=== PATIENT | male | born 1965 | race Caucasian/White ===

== ENCOUNTER 2024-12-31 12:09 | Inpatient (IN) | payer SELFPAY ==
[~2024-12-31] VITALS: Ht 175.2 cm; Wt 62.3 kg
[~2024-12-31 12:09] MED LIST: ZITHROMAX250 MG PO
[2024-12-31 12:24] VITALS: BP 73/55
[2024-12-31] MEDS ORDERED: SODIUM CHLORIDE 0.9% 1,000 ML IV ONE ×3 (12:35→16:10)
[2024-12-31 12:52] LABS: BASO # 0.1 10*3/uL (0.0-0.1); BASO % 0.6 % (0.0-1.0); EOS # 0.0 10*3/uL (0.0-0.4); EOS % 0.2 % (1.0-4.0); MEAN CELL VOLUME 96.6 fl (80.0-94.0); MEAN CORPUSCULAR HGB 31.1 pg (27.0-31.0); MEAN PLATELET VOLUME 8.7 fl (9.6-12.3); MONO # 0.9 10*3/uL (0.1-1.0); MONO % 6.2 % (3.0-9.0); NEUT # 12.3 10*3/uL (2.3-7.9); NEUT % 83.5 % (47.0-73.0); NUCLEATED RED BLOOD CELL 0.0 % (0.0-0.0); NUCLEATED RED BLOOD CELL 0.0 10*3/uL (0.0-0.0); PLATELET COUNT AUTOMATED 322 10*3/uL (130-400); RED CELL DISTRI WIDTH 12.4 % (0-14.5)
[2024-12-31 13:13] LABS: BUN 12 mg/dl (9-23); SGPT/ALT 14 U/L (5-49)
[2024-12-31 15:31] VITALS: BP 150/77
[2024-12-31 15:40] LABS: BILIRUBIN Negative (Negative); BLOOD Negative (Negative); CLARITY Clear (Clear); COLOR Yellow (Yellow); KETONE 1+ (Negative); LEUKO ESTERASE Negative (Negative); NITRITE Negative (Negative); PH 5.5 (4.5-8.0); SPECIFIC GRAVITY 1.015 (1.001-1.030); UROBILINOGEN 1.0 E.U./dl (0.0-1.0)
[2024-12-31 15:51] LABS: BACTERIA TRACE; HYALINE CAST TNTC
[2024-12-31 15:52] LABS: MUCOUS TRACE
[2024-12-31 16:01] VITALS: BP 134/81
[2024-12-31] MEDS ORDERED: TOPROL XL100 MG PO (16:02)
[2024-12-31] MEDS ORDERED: ACETAMINOPHEN 325 MG TAB PO PRN (16:05)
[2024-12-31] MEDS ORDERED: Ondansetron Hydrochloride 4 MG/2 ML VIAL IV PRN (16:05)
[2024-12-31] MEDS ORDERED: BISACODYL 5 MG TAB PO PRN (16:05)
[2024-12-31 16:57] VITALS: BP 143/77
[2024-12-31 22:00] VITALS: BP 127/79
[2024-12-31] MEDS ORDERED: ALBUTEROL0.63 MG/3 INH (22:21)
[2024-12-31] MEDS ORDERED: SILDENAFIL CIT100 MG PO (22:21)
[2024-12-31] MEDS ORDERED: TAMSULOSIN HCL0.4 MG PO (22:21)
[2025-01-01 05:34] LABS: ACT PARTIAL THROMBO TIME 28.2 SECONDS (20.0-32.1)
[2025-01-01 06:27] LABS: BASO # 0.1 10*3/uL (0.0-0.1); BASO % 1.1 % (0.0-1.0); EOS # 0.1 10*3/uL (0.0-0.4); EOS % 1.7 % (1.0-4.0); MEAN CELL VOLUME 95.2 fl (80.0-94.0); MEAN CORPUSCULAR HGB 31.4 pg (27.0-31.0); MEAN PLATELET VOLUME 9.4 fl (9.6-12.3); MONO # 1.1 10*3/uL (0.1-1.0); MONO % 13.2 % (3.0-9.0); NEUT # 3.8 10*3/uL (2.3-7.9); NEUT % 46.5 % (47.0-73.0); NUCLEATED RED BLOOD CELL 0.0 % (0.0-0.0); NUCLEATED RED BLOOD CELL 0.0 10*3/uL (0.0-0.0); PLATELET COUNT AUTOMATED 250 10*3/uL (130-400); RED CELL DISTRI WIDTH 12.4 % (0-14.5)
[2025-01-01 07:04] LABS: VITAMIN D, 25-HYDROXY 31.0 ng/mL (30-100)
[2025-01-01 07:06] LABS: BUN 9 mg/dl (9-23); FREE T4 1.04 ng/dl (0.89-1.76); LDL CHOLESTEROL 67 mg/dL (9-159); SGPT/ALT 12 U/L (5-49)
[2025-01-01 08:00] VITALS: BP 131/85
[2025-01-01] MEDS ORDERED: METOPROLOL SUCCINATE XR 100 MG TAB PO SCH (10:00)
== END 2025-01-01 15:00 | disposition home or self-care (01) | DRG 74 ==
LOC: ED 12:09 → EDHOLD 15:57 → 4E 15:57
PROVIDERS: Nurse Practitioner Family; ADMIT Family Medicine; ATTEND Family Medicine
DX: G90.89 Other disorders of autonomic nervous system (principal); E44.0 Moderate protein-calorie malnutrition; S09.90XA Unspecified injury of head, initial encounter; I95.9 Hypotension, unspecified; J44.9 Chronic obstructive pulmonary disease, unspecified; I10 Essential (primary) hypertension; D72.829 Elevated white blood cell count, unspecified; E86.1 Hypovolemia; W19.XXXA Unspecified fall, initial encounter; F10.10 Alcohol abuse, uncomplicated; Y93.89 Activity, other specified; Z79.899 Other long term (current) drug therapy; Y92.89 Other specified places as the place of occurrence of the external cause; Y99.8 Other external cause status; Z68.20 Body mass index [BMI] 20.0-20.9, adult